=== PATIENT | male | born 1955 | race Caucasian/White ===

== ENCOUNTER 2022-05-05 07:04 | Emergency (ER) | payer MEDICARE ==
[2022-05-05] MEDS: Ketorolac 60 MG/2 ML SDV IM ONE (07:41)
[2022-05-05 08:25] VITALS: BP 150/83; PULSE 83
== END 2022-05-05 09:10 | disposition home or self-care (01) ==
LOC: LB.ED 07:04
DX: S29.011A Strain of muscle and tendon of front wall of thorax, initial encounter (principal); E78.00 Pure hypercholesterolemia, unspecified; I10 Essential (primary) hypertension; K21.9 Gastro-esophageal reflux disease without esophagitis; E03.9 Hypothyroidism, unspecified; E66.9 Obesity, unspecified; Z68.34 Body mass index [BMI] 34.0-34.9, adult; Z79.82 Long term (current) use of aspirin; Z79.899 Other long term (current) drug therapy
CPT/HCPCS: 36415; 80053; 81001; 85025; 96372; 99282; 99283; J1885